=== PATIENT | male | born 1980 | race Caucasian/White ===

== ENCOUNTER 2022-07-24 18:31 | Emergency (ER) | payer OTHER ==
[~2022-07-24] VITALS: Ht 177.8 cm; Wt 81.6 kg
--- NOTE | 2022-07-24 18:35 | NUR ---
BIB [facility] from a rehab facility with c/o seizure. Pt is in the hallway in the EMS gurney, there are no ER beds available at this time.
[2022-07-24] MEDS ORDERED: CHLORDIAZEPOXIDE HCL 25 MG CAPSULE PO ONE (18:45)
[2022-07-24] MEDS ORDERED: THIAMINE HCL 100 MG TABLET PO ONE (19:00)
[2022-07-24 19:08] LABS: HEMATOCRIT 38.9 % (36.7-47.1); MEAN CORPUSCULAR VOLUME 98.1 fL (73.0-96.2); PLATELET COUNT (AUTO) 119 K/uL (152-348)
[2022-07-24 19:20] LABS: BILIRUBIN,DIRECT 0.2 mg/dL (0.0-0.2); BILIRUBIN,TOTAL 0.8 mg/dL (0.2-1.0); CREATININE 1.5 mg/dL (0.6-1.3); POTASSIUM 3.4 mmol/L (3.5-5.1); TOTAL PROTEIN, SERUM 7.2 g/dL (6.4-8.2)
[2022-07-24 19:45] LABS: MAGNESIUM 1.6 mg/dL (1.8-2.4)
[2022-07-24] MEDS ORDERED: POTASSIUM BICARBONATE/CIT AC 25 MEQ TABLET.EFF PO ONE (19:45)
[2022-07-24] MEDS ORDERED: CYANOCOBALAMIN 1000 MCG/ML VIAL IM ONE (20:00)
[2022-07-24] MEDS ORDERED: POTASSIUM BICARBONATE/CIT AC 25 MEQ TABLET.EFF ONE (20:13)
[2022-07-24] MEDS ORDERED: MAGNESIUM SULFATE/D5W 300 ML ONE (20:14)
[2022-07-24] MEDS ORDERED: CHLORDIAZEPOXIDE HCL 25 MG CAPSULE ONE (20:14)
[2022-07-24] MEDS ORDERED: THIAMINE HCL 100 MG TABLET ONE (20:14)
[2022-07-24] MEDS ORDERED: CYANOCOBALAMIN 1000 MCG/ML VIAL ONE (20:14)
[2022-07-24] MEDS: MAGNESIUM SULFATE/D5W 100 ML IV SCH ×3 (20:24→21:23)
--- NOTE | 2022-07-24 21:55 | NUR ---
IV removed. Catheter intact and site benign. Pressure and 4x4 gauze applied to site. No bleeding noted.
--- NOTE | 2022-07-24 22:13 | NUR ---
Patient discharged to home in stable condition WITH STAFF MEMBER FROM [facility] TAKING PATIENT BACK TO THE REHAB FACILITY. Written and verbal after care instructions given. Patient verbalizes understanding of instructions. Stressed follow up or return to ER for worsening s/s.
[2022-07-24 22:14] VITALS: BP 140/89
== END 2022-07-24 22:14 | disposition home or self-care (01) ==
LOC: ER 18:33
DX: R56.9 Unspecified convulsions (principal); F10.139 Alcohol abuse with withdrawal, unspecified; E83.42 Hypomagnesemia; R74.01 Elevation of levels of liver transaminase levels; Z87.891 Personal history of nicotine dependence; I10 Essential (primary) hypertension
CPT/HCPCS: 99284; 96365; 96366; 80076; 80048; 82607; 83735; 85025; 36415; 96372; J3420; J3475; A4663